=== PATIENT | male | born 2000 | race Caucasian/White ===

== ENCOUNTER 2023-12-15 22:56 | Emergency (ER) | payer MEDICAID ==
[~2023-12-15] VITALS: Ht 170.2 cm; Wt 84.0 kg
[2023-12-15 23:07] VITALS: BP 148/80; PULSE 130; RESP 16; TEMP 98.1; O2SAT 100
[2023-12-15] MEDS: ONDANSETRON HCL 4MG/2ML INJ IM ONE (23:30)
[2023-12-15] MEDS: DIAZEPAM 5 MG/ML 2ML SYR IM ONE (23:30)
== END 2023-12-15 23:33 | disposition left against medical advice (07) ==
LOC: ER 22:56
DX: F12.929 Cannabis use, unspecified with intoxication, unspecified (principal); R11.2 Nausea with vomiting, unspecified
CPT/HCPCS: 99284; 96372; J3360; J2405